=== PATIENT | male | born 1955 | race Caucasian/White ===

== ENCOUNTER 2017-12-12 20:07 | Outpatient (REF) | payer OTHER, SELFPAY ==
[2017-12-12 21:45] LABS: Sodium 133 mmol/L (136-145)
== END 2017-12-12 20:08 ==
LOC: NCHCN 20:07
PROVIDERS: PCP Nurse Practitioner Family; Visit Provider Registered Nurse
DX: E87.1 Hypo-osmolality and hyponatremia (principal)
CPT/HCPCS: 84295

== ENCOUNTER 2017-12-26 14:23 | Outpatient (REF) | payer OTHER, SELFPAY ==
[2017-12-26 21:38] LABS: Sodium, Urine 39 mmol/L
[2017-12-27 19:36] LABS: Osmolality, Urine 177 mos/kg (150-1150)
== END 2017-12-26 14:24 ==
LOC: NCHCN 14:23
PROVIDERS: PCP Nurse Practitioner Family; Visit Provider Registered Nurse
DX: E87.1 Hypo-osmolality and hyponatremia (principal)
CPT/HCPCS: 83935; 84300

== ENCOUNTER 2018-09-18 15:33 | Outpatient (REF) | payer OTHER, SELFPAY ==
[2018-09-18 22:33] LABS: BUN 13 mg/dL (7-18); CREATININE 1.01 mg/dL (0.70-1.30); Chloride 99 mmol/L (98-107); Cholesterol 179 mg/dL (50-200); Glucose 75 mg/dL (70-100); LDL CHOLESTEROL 87 mg/dL (<100); Potassium 4.3 mmol/L (3.5-5.1); Sodium 135 mmol/L (136-145); Triglyceride 68 mg/dL (30-150)
[2018-09-18 23:07] LABS: Calcium 9.1 mg/dL (8.5-10.1); HDL Cholesterol 77 mg/dL (40-60)
[2018-09-20 10:32] LABS: PSA, Screening 0.8 ng/ml (0-4.5)
== END 2018-09-18 15:53 ==
LOC: NCHCN 15:33
PROVIDERS: PCP Nurse Practitioner Family; Visit Provider Registered Nurse
DX: Z00.00 Encounter for general adult medical examination without abnormal findings (principal); I10 Essential (primary) hypertension; Z12.5 Encounter for screening for malignant neoplasm of prostate; Z80.42 Family history of malignant neoplasm of prostate
CPT/HCPCS: 80048; 80061; 83721; 84153

== ENCOUNTER 2020-07-03 13:53 | Outpatient (REF) | payer SELFPAY ==
[2020-07-03 13:44] LABS: Hemoglobin A1C 5.8 % (<5.7)
[2020-07-03 14:02] LABS: Anion Gap 9.9 mmol/L (3-11); BUN 10 mg/dL (7-18); CO2 24.1 mmol/L (21.0-32.0); CREATININE 0.9 mg/dL (0.70-1.30); Calcium 9.2 mg/dL (8.5-10.1); Chloride 96 mmol/L (98-107); Glucose 102 mg/dL (74-106); Potassium 4.9 mmol/L (3.5-5.1); Sodium 130 mmol/L (136-145)
== END 2020-07-03 13:54 | disposition home or self-care (01) ==
LOC: NCHCN 13:53
PROVIDERS: PCP Nurse Practitioner Family; Visit Provider Registered Nurse
DX: I10 Essential (primary) hypertension (principal); Z13.1 Encounter for screening for diabetes mellitus
CPT/HCPCS: 80048; 83036

== ENCOUNTER 2021-06-11 15:31 | Outpatient (REF) | payer MEDICARE, SELFPAY ==
[2021-06-11 21:10] LABS: Hemoglobin A1C 5.6 % (<5.7)
[2021-06-11 21:25] LABS: ALT 29 U/L (16-63); AST 22 U/L (15-37); Albumin 3.9 g/dL (3.4-5.0); Alkaline Phosphatase 109 U/L (46-116); Anion Gap 8.7 mmol/L (3-11); BUN 11 mg/dL (7-18); Bilirubin, Total 0.4 mg/dL (0.2-1.0); CO2 25.3 mmol/L (21.0-32.0); Calcium 9.1 mg/dL (8.5-10.1); Calculated LDL 122 mg/dL (<100); Chloride 97 mmol/L (98-107); Cholesterol 195 mg/dL (<200); Glucose 92 mg/dL (74-106); HDL Cholesterol 62 mg/dL (40-60); Potassium 4.8 mmol/L (3.5-5.1); Sodium 131 mmol/L (136-145); Total Protein 7.9 g/dL (6.4-8.2); Triglyceride 59 mg/dL (<150)
== END 2021-06-11 15:32 | disposition home or self-care (01) ==
LOC: NCHCN 15:31
PROVIDERS: PCP Nurse Practitioner Family; Visit Provider Registered Nurse
DX: I10 Essential (primary) hypertension (principal); R73.03 Prediabetes
CPT/HCPCS: 80053; 80061; 83036

== ENCOUNTER 2021-12-08 18:55 | Outpatient (REF) | payer MEDICARE, SELFPAY ==
[2021-12-08 16:27] LABS: Abs Immature Grans 0.04 10^3/uL (0.0-0.06); Absolute Basophil Count 0.17 10^3/uL (0.0-0.2); Absolute Eosinophil Count 0.23 10^3/uL (0.0-0.7); Absolute Lymphocyte Count 1.93 10^3/uL (1.2-3.4); Absolute Monocyte Count 0.76 10^3/uL (0.1-0.8); Basophils % 1.9; Eosinophils % 2.5; HCT 44.5 % (40.0-50.0); HGB 15.6 g/dL (13.5-17.5); Immature Grans % 0.4; Lymphocytes % 21.4; MCH 30.8 pg (27.0-33.0); MCHC 35.1 % (32.0-36.0); MCV 88 fL (80-95); MPV 9.8 fL (8.0-11.0); Monocytes % 8.4; Neutrophils % 65.4; Platelet Count 328 10^3/uL (130-400); RBC 5.07 10^6/uL (4.36-5.78); RDW 13.2 % (11.8-14.1); RDW-SD 42.5 fL; WBC 9.03 10^3/uL (4.4-10.8)
[2021-12-08 17:26] LABS: Anion Gap 9.6 mmol/L (3-11); BUN 10 mg/dL (7-18); CO2 26.4 mmol/L (21.0-32.0); CREATININE 0.9 mg/dL (0.70-1.30); Chloride 97 mmol/L (98-107); Glucose 105 mg/dL (74-106); Potassium 4.3 mmol/L (3.5-5.1); Sodium 133 mmol/L (136-145); TSH 1.59 uIU/mL (0.36-3.74)
== END 2021-12-08 18:56 | disposition home or self-care (01) ==
LOC: NCHCN 18:55
PROVIDERS: PCP Nurse Practitioner Family; Visit Provider Registered Nurse
DX: Z00.00 Encounter for general adult medical examination without abnormal findings (principal); E87.1 Hypo-osmolality and hyponatremia
CPT/HCPCS: 80048; 84443; 85025

== ENCOUNTER 2022-12-23 10:47 | Outpatient (REF) | payer MEDICARE, SELFPAY ==
[2022-12-23 15:35] LABS: HGB 15.3 g/dL (13.5-17.5); MCH 29.6 pg (27.0-33.0); MCV 87 fL (80-95); MPV 9.7 fL (8.0-11.0); Platelet Count 330 10^3/uL (130-400); RBC 5.17 10^6/uL (4.36-5.78); RDW 13.2 % (11.8-14.1); WBC 9.45 10^3/uL (4.4-10.8)
[2022-12-23 16:15] LABS: ALT 31 U/L (16-63); AST 20 U/L (15-37); Albumin 3.9 g/dL (3.4-5.0); Alkaline Phosphatase 121 U/L (46-116); Anion Gap 9.7 mmol/L (3-11); BUN 10 mg/dL (7-18); Bilirubin, Total 0.5 mg/dL (0.2-1.0); CO2 25.3 mmol/L (21.0-32.0); Calcium 9.1 mg/dL (8.5-10.1); Calculated LDL 72 mg/dL (<100); Chloride 98 mmol/L (98-107); Cholesterol 145 mg/dL (<200); Estimated GFR 83.01 (mL/min/1.73m2); Folate 17.8 ng/mL (8.6-20.0); Glucose 99 mg/dL (74-106); HDL Cholesterol 59 mg/dL (40-60); Potassium 4.1 mmol/L (3.5-5.1); Sodium 133 mmol/L (136-145); TSH 1.37 uIU/mL (0.36-3.74); Total Protein 8.3 g/dL (6.4-8.2); Triglyceride 72 mg/dL (<150); Vitamin B12 499 pg/mL (193-986)
[2022-12-23 16:30] LABS: Hemoglobin A1C 5.7 % (<5.7)
[2022-12-23 22:35] LABS: PSA, Screening 0.9 ng/mL (<=4.5)
== END 2022-12-23 10:48 | disposition home or self-care (01) ==
LOC: NCHCN 10:47
PROVIDERS: PCP Nurse Practitioner Family; Visit Provider Family Medicine
DX: R73.03 Prediabetes (principal); I10 Essential (primary) hypertension; E66.9 Obesity, unspecified; Z12.5 Encounter for screening for malignant neoplasm of prostate; Z80.42 Family history of malignant neoplasm of prostate; E87.1 Hypo-osmolality and hyponatremia; R68.89 Other general symptoms and signs
CPT/HCPCS: 80053; 80061; 84153; 85027; 82607; 82746; 83036; 84443